=== PATIENT | male | born 1985 | race Caucasian/White ===

== ENCOUNTER → 2024-02-11 07:43 | Outpatient (REF) | payer OTHER, SELFPAY | LOC: PAVMRI 07:43 | PROVIDERS: ATTENDING PHYSICIAN Internal Medicine Endocrinology, Diabetes & Metabolism; FAMILY PHYSICIAN Family Medicine | DX: D49.7 Neoplasm of unspecified behavior of endocrine glands and other parts of nervous system (principal) | CPT/HCPCS: 70553; A9575 ==

== ENCOUNTER → 2024-06-16 11:09 | Outpatient (REF) | payer OTHER, SELFPAY | LOC: HWRAD 11:09 | PROVIDERS: ATTENDING PHYSICIAN Nurse Practitioner Family | DX: M79.642 Pain in left hand (principal) | CPT/HCPCS: 73140 ==